=== PATIENT | female | born 1995 | race Caucasian/White ===

== ENCOUNTER → 2020-12-30 06:45 | Outpatient (CLI) | payer OTHER, SELFPAY ==
[2020-12-30 20:36] LABS: SARS-CoV-2 RNA PCR Negative
== END ==
PROVIDERS: PCP Family Medicine; Visit Provider Family Medicine
DX: R68.89 Other general symptoms and signs (principal); Z20.822 Contact with and (suspected) exposure to COVID-19
CPT/HCPCS: C9803; U0003; U0005

== ENCOUNTER 2023-07-11 09:01 | Outpatient (CLI) | payer OTHER, SELFPAY ==
--- NOTE | ~2023-07-11 | XR_ITS ---
XR ribs LT 2V w CXR 2V DATE: 07/11/2023 09:48 INDICATION: Left upper chest wall pain for one year. No injury. TECHNIQUE: PA and lateral chest. 4 views of left ribs. COMPARISON: None FINDINGS: Normal heart size. No hilar or mediastinal enlargement. No pulmonary infiltrate or consolid ation, pleural effusion or pulmonary vascular congestion or pneumothorax is detected. No left rib fracture or bone destruction is detected. There is mild thoracolumbar levoscoliosis. IMPRESSION: Mild thoracolumbar levoscoliosis No left rib fracture or bone destruction is evident No active cardiopulmonary disease Reviewed, dictated and finalized at location B. S SUPPORT TECHNICIAN
[2023-07-11 09:16] LABS: Basophils Percent Auto 0.5 % (0.2-1.2); Eosinophils Absolute Auto 0.1 K/mm3 (0-0.3); Eosinophils Percent Auto 1.4 % (0-4.4); Hematocrit 44.3 % (37.0-47.0); Hemoglobin 14.9 g/dL (12.0-15.0); Immature Granulocyte Absolute 0.01 K/mm3 (0.00-0.031); Immature Granulocyte Percent A 0.2 % (0-0.5); Lymphocytes Absolute Auto 2.34 K/mm3 (0.9-3.2); Lymphocytes Percent Auto 40.6 % (18.3-44.2); Mean Corpuscular HGB Conc 33.6 g/dl (32-36); Mean Corpuscular Hemoglobin 29.6 pg (26-34); Mean Corpuscular Volume 88.1 fl (80-100); Monocytes Absolute Auto 0.4 K/mm3 (0.1-0.6); Monocytes Percent Auto 6.9 % (2.6-8.5); Neutrophils Absolute Auto 2.9 K/mm3 (1.3-6.7); Neutrophils Percent Auto 50.4 % (45.5-73.1); Platelet Count Result 271 k/mm3 (150-375); Red Blood Count 5.03 M/mm3 (4.2-5.4); Red Cell Distribution Width 12.4 % (11.5-14.5); White Blood Count 5.8 K/mm3 (4.5-10.0)
--- NOTE | 2023-07-11 09:20 | ECG_ITS ---
Measurements Intervals [place] Rate: 63 P: 40 IN: 147 QRS: 70 QRSD: 74 T: 55 QT: 379 QTc: 390 Interpretive Statements SINUS RHYTHM NORMAL ELECTROCARDIOGRAM NO PREVIOUS ECG AVAILABLE FOR COMPARISON Electronically Signed On 07-11-2023 16:50:04 [employer] by Junior Simon M.D.
[2023-07-11 09:26] LABS: Alanine Aminotransferase 28 U/L (6-35); Albumin Level 4.6 g/dL (3.5-5.1); Alkaline Phosphatase 76 U/L (38-126); Anion Gap 6 mmol/L (8-16); Aspartate Amino Transferase 28 U/L (14-36); Bilirubin,Total 1.1 mg/dL (0.2-1.3); Blood Urea Nitrogen 15 mg/dL (7-17); Calcium 9.7 mg/dL (8.4-10.2); Carbon Dioxide 30 mmol/L (22-30); Chloride 104 mmol/L (98-107); Estimated Glomerular Filt Rate > 60; Glucose 91 mg/dL (65-110); Potassium 4.2 mmol/L (3.4-5.0); Sodium 140 mmol/L (137-145)
[2023-07-11 10:11] LABS: Hepatitis B Surface Antigen Negative (Negative)
[2023-07-11 10:17] LABS: HAV RESULT Negative (Negative); Hepatitis B Core IgM Result Negative (Negative)
[2023-07-11 10:29] LABS: Hepatitis C Virus Antibody Negative (Negative)
== END 2023-07-11 09:02 | disposition home or self-care (01) ==
PROVIDERS: PCP Family Medicine; Visit Provider Physician Assistant
DX: M54.6 Pain in thoracic spine (principal); R07.89 Other chest pain; R17 Unspecified jaundice; R07.81 Pleurodynia
CPT/HCPCS: 36415; 71046; 71100; 80053; 80074; 84443; 85025; 93005

== ENCOUNTER 2025-02-05 09:17 | Inpatient (IN) | payer OTHER, SELFPAY ==
[2025-02-05] VITALS (81 sets, daily range): BP systolic 106–146; BP diastolic 58–106; PULSE 69–111; TEMP 36.6–36.9; O2SAT 94–100; BMI 29.2
--- NOTE | 2025-02-05 10:04 | LDADM ---
This patient, Yaakov Berrios, was admitted to Labor/Delivery/Recovery 105 on 02/05/25 at 09:17. Plans for labor, pain management and were discussed with patient. Patient/family oriented to hospital policies and general routines including ID bracelet, bed and alarms, visiting hours, pain management, procedures, bathroom and other care routines, personal items, smoking policy, room service/diet and guest tray routines, security routines, and visiting hours. Patient/Family are encouraged to report perceived risks to care and to ask questions if they do not understand what they are told or what they should do. See OBIX for further documentation.
[2025-02-05 10:18] LABS: Hematocrit 35.3 % (37.0-47.0); Hemoglobin 12.2 g/dL (12.0-15.0); Immature Granulocyte Percent A 1.6 % (0-0.5); Lymphocytes Absolute Auto 1.84 K/mm3 (0.9-3.2); Mean Corpuscular HGB Conc 34.6 g/dl (32-36); Mean Corpuscular Hemoglobin 31.0 pg (26-34); Mean Corpuscular Volume 89.8 fl (80-100); Nucleated Red Blood Cells Absolute Auto 0.000 K/mm3 (0.0-0.012); Nucleated Red Blood Cells Perc 0.0 % (0.0-0.2); Platelet Count Result 141 k/mm3 (150-375); Red Blood Count 3.93 M/mm3 (4.2-5.4); White Blood Count 8.6 K/mm3 (4.5-10.0)
[2025-02-05 11:09] LABS: Syphilis IgG/IgM Antibody Non-Reactive (Nonreactive)
--- NOTE | 2025-02-05 13:27 | WPDOBADMIT ---
Obstetrics - Admit Note Admission Note: record reviewed. No pertinent additions to the history and/or any subsequent changes in the physical findings that are not consistent with the expected course of the were found. Patient presents for elective induction of labor. SVE /-3 on admission per RN. FHR category I. Buccal cytotec 50mcg q4h. Additions to the history and/or subsequent changes in the physical findings follow. None.
--- NOTE | 2025-02-05 15:58 | PHAR ---
Nature Made bottle labeled folic acid + DHA and choline 265mg sent to pharmacy. Unable to identify contents. No markings one capsules in bottles.
[2025-02-05] MEDS: LACTATED RINGERS 1,000 ML 125 ML IV CONT ×2 (16:35→21:16)
[2025-02-05] MEDS: OXYTOCIN 30 UNITS/NS 500 ML 30 UNITS/500 ML BAG IV CONT (16:35)
--- NOTE | 2025-02-05 19:39 | WPDANESEPP ---
Anes - Eval Pre Procedure Procedure: labor epidural Date/Time: 02/05/25 19:39 Surgeon: mabel Preop Diagnosis: pain during labor Pre Op Diagnosis: IOL Patient Data Age: 29 Gender: F Height: 1.68 m Weight: 82 kg Last Vital Signs Temp 36.9 C 02/05/25 15:00 Pulse 95 02/05/25 17:46 BP 123/82 02/05/25 17:46 O2 Del Method Room Air 02/05/25 10:04 Allergies Allergy/AdvReac Type Severity Reaction Status Date / Time No Known Allergies Allergy Verified 02/05/25 09:44 Home Medications ?Medication ?Instructions ?Recorded ?Confirmed ?Type tffozrae-[id number]-[id number] 1 mg tablet PO 01/12/25 History tablet Nature Made vitamin with 1 cap PO .nightly 02/05/25 02/05/25 History folic acid and DHA choline 250 mg tablet 265 mg PO DAILY 02/05/25 02/05/25 History Laboratory Tests 02/05/25 09:53 WBC 8.6 K/mm3 (4.5-10.0) RBC 3.93 L M/mm3 (4.2-5.4) Hgb 12.2 g/dL (12.0-15.0) Hct 35.3 L % (37.0-47.0) MCV 89.8 fl (80-100) MCH 31.0 pg (26-34) MCHC 34.6 g/dl (32-36) RDW 13.0 % (11.5-14.5) Plt Count 141 L k/mm3 (150-375) MPV 11.2 H fl (7.4-10.4) Immature Gran % (Auto) 1.6 H % (0-0.5) Neut % (Auto) 68.3 % (45.5-73.1) Lymph % (Auto) 21.5 % (18.3-44.2) Edgar % (Auto) 7.0 % (2.6-8.5) Eos % (Auto) 1.1 % (0-4.4) Baso % (Auto) 0.5 % (0.2-1.2) Lymph # (Auto) 1.84 K/mm3 (0.9-3.2) Edgar # (Auto) 0.6 K/mm3 (0.1-0.6) Eos # (Auto) 0.1 K/mm3 (0-0.3) Baso # (Auto) 0.0 K/mm3 (0.0-0.1) Abs Immat Gran (auto) 0.14 H K/mm3 (0.00-0.031) Absolute Neuts (auto) 5.9 K/mm3 (1.3-6.7) Absolute Nucleated RBC 0.000 K/mm3 (0.0-0.012) Nucleated RBC % 0.0 % (0.0-0.2) Syphilis IgG/IgM Ab Non-reactive (Nonreactive) Blood Type A Positive Antibody Screen Negative Patient hx anesthesia problems: none Family hx anesthesia problems: none Results Review: All pre-operative results and documents have been reviewed as part of the pre-operative evaluation. [facility] Past Medical History Medical History (Updated 02/05/25 @ 19:39 by Cande Forman CRNA) Depression Allergic cough BMI 25.0-25.9,adult BMI 27.0-27.9,adult Family History Family History Grandparent Hypertension Family history of malignant neoplasm of breast Father Heart disease Mother No problems noted. Sibling No problems noted. Social History Social History Smoking status: Never smoker Second hand tobacco smoke exposure: Yes Alcohol intake: current Substance use: never Substance use type: does not use Lack of Transportation: No Lack of Food: Never True Current Housing: I Have Housing Concerned About Future Housing: No Difficulty Paying Gas/Electric Bills: No Difficulty Paying for Meds: No Currently Unemployed: No Education: Bachelor's Degree Difficulty w/ Childcare or Family Care: No Living arrangements: with family Occupation/Education: occupation Additional occupation/education comments: [employer] Gender identity (if verbalized by the patient): Female Spiritual care concerns: No Exam Day of Procedure 02/05/25 19:39
[2025-02-06] VITALS (59 sets, daily range): BP systolic 89–145; BP diastolic 70–98; PULSE 62–143; RESP 16–18; TEMP 36.2–36.7; O2SAT 96–100
[2025-02-06] MEDS: FAMOTIDINE 20 MG/2 ML VIAL IV PUSH (02:30)
--- NOTE | 2025-02-06 02:45 | P.PCNOB_ITS ---
OB - Vaginal Delivery Note Procedure Delivery date: 02/06/25 Events: Elective Induction of Labor Induction method: Per Misoprostol Protocol Delivery augmentation: Rupture of Membranes and Pitocin Delivery monitor: External FHT and External Uterine Route of delivery: Episiotomy description: None Laceration Description: Perineal - 1st Degree Delivery repair: vicryl Specimen: No Quantitative Blood Loss (ml): 100 Anesthesia type: Epidural Disposition: Floor Complications: No immediate complications Narrative: See H&P and notes for details on patient's admission and labor. She progressed to complete cervical dilation and at the appropriate time began pushing. With adequate expulsive efforts by the mother, the baby's head was delivered without difficulty. Nuchal cord was not present. The baby's right shoulder was anterior and delivered under the pubic symphysis without difficulty. The posterior shoulder and the rest of the baby delivered without difficulty. The umbilical cord was doubly clamped and cut after 90 seconds of delayed cord clamping. Care of the was then assumed by the nursing staff. [place] Baby Date of : 02/06/25 Time of : 02:29 Gestational Age by Date: 37 gender: Male presentation: vertex position: Left Occiput Anterior Placenta delivery description: Expressed Cord Vessel Description: 3 Vessels and Delayed Cord Clamping
[2025-02-06] MEDS: OXYTOCIN 30 UNITS/NS 500 ML 30 UNITS/500 ML BAG 125 UNITS IV CONT (03:37)
--- NOTE | 2025-02-06 05:01 | OBPPTRN ---
Patient transferred to post room #276 via wheelchair. Support person present. Oriented to unit, room, information board, rooming in, admission packet and security measures. Patient verbalizes understanding.
[2025-02-06] MEDS: ACETAMINOPHEN 325 MG TABLET 650 MG PO (21:30)
[2025-02-07 04:20] LABS: Hematocrit 33.1 % (37.0-47.0); Hemoglobin 11.1 g/dL (12.0-15.0)
[2025-02-07] MEDS: ACETAMINOPHEN 325 MG TABLET 650 MG PO (04:35)
[2025-02-07 07:10] VITALS: BP 126/83; PULSE 86; RESP 16; TEMP 36.4; O2SAT 99
--- NOTE | 2025-02-07 08:29 | P.PNOB_ITS ---
OB - PN: Subj Subjective Date/time seen: 02/07/25 08:29 Patient comments: no complaints, pain well controlled, incisional pain, tolerating diet and flatus present OB - PN: Obj Data Labs 02/07/25 03:34 Labs: Laboratory Results - last 24 hr 02/07/25 03:34 Hgb 11.1 L Hct 33.1 L OB - PN A/P Plan day: 1 Plan: routine care Comments: No problems, routine care Time Spent With Patient Time: Total time spent is greater than 50% in coordination of care (as documented) at patient's floor/unit and/or counseling patient: Exam 2 Const: General: comfortable, no acute distress and alert Resp: Effort & Inspection: normal respiratory effort Auscultation: no crackles, no rales and no rhonchi Cardio: Rate: regular rate Heart sounds: no click, no murmurs and no rubs GI: Inspection: non-distended GI Palp: No Tenderness to palpation present (GI) Auscultation: normal bowel sounds Other: Incision - CDI Extrem: General: normal to inspection, no pedal edema and no calf tenderness
--- NOTE | 2025-02-07 08:29 | PM.OBDSVD ---
DS: Admitting Diagnosis Discharge Date 02/07/2025 Admitting Diagnosis Term DS: Discharge Diagnosis Discharge Diagnosis (1) Term delivered: Code(s): O80 - Encounter for full-term uncomplicated delivery Status: Acute OB - DS: Summary OB Procedures : None OB Procedures Intrapartum: Spontaneous Vag Delivery OB Procedures: : None Peripartum Data Laceration Description: Perineal - 1st Degree Episiotomy description: None Time Spent with Patient Time attestation: Total time spent providing and/or coordinating discharge services: DS: Data Data Completed and Pending Labs on day of discharge: Labs from last 24 hours 02/07/25 03:34 Hgb 11.1 L Hct 33.1 L Discharge Plan Discharge Discharging Clinician: Boris Victoria Patient Disposition: Home Activity: pelvic rest Diet: regular Patient Instructions: Antibiotic Form Patient Language: Polish Stand Alone Forms: General Discharge Information Follow-up/Referrals: Boris Victoria MD [Physician, MARKETING RESEARCHER] Discharge Medications: Continued owutiasb-zsv-Ca-FA 1 mg tablet PO Nature Made vitamin with folic acid and DHA 1 cap PO .nightly choline 250 mg tablet 265 mg PO DAILY Date of admission: 02/05/25 09:17 Primary Care Provider: Mustapha Cruz Admitting Provider: Son Jha Attending physician on admission: Son Jha Condition: Stable
--- NOTE | 2025-02-07 10:40 | PC.NURSE ---
Consulted with mother concerning needs and she shared her ability to independently latch infant optimally without pain. Mother is feeding appropriately for growth of and understands stimulating to eat if needed. Infant has had appropriate feedings in the last 24 hours meets the outcomes for weight, output, blood sugar and jaundice at this time. Reinforced understanding of milk production, transition of milk, signs of adequate intake, transition of stool, prevention/relief of engorgement, plugged ducts, mastitis, responsive watching for feeding cues, the different methods of stimulating to breastfeed 1-3 hours after the start of the last feeding, community resources, and when to call a provider using the resource of the feeding sheet along with the mom and baby guide. Mother voiced understanding of the information shared, is confident to continue effectively her infant at home, when to call for assistance, denies any additional assistance or education at this time. Reported to the Primary RN.
[2025-02-09 13:13] VITALS: BP 120/90; PULSE 87; RESP 18; TEMP 37.1; O2SAT 99
== END 2025-02-07 14:26 | disposition home or self-care (01) | DRG 807 ==
LOC: ANHOB2 02-07 13:23 → ANHLDR 02-08 10:06 → ANHOB2 02-08 10:06
PROVIDERS: Admitting Provider Obstetrics & Gynecology; PCP Family Medicine; Visit Provider Obstetrics & Gynecology
DX: O70.0 First degree perineal laceration during delivery (principal); Z37.0 Single live birth; Z3A.39 39 weeks gestation of pregnancy
CPT/HCPCS: 36415; 85014; 85018; 85025; 86593; 86850; 86900; 86901; A9270; J2590; J2795; J7120